=== PATIENT | female | born 1995 | race Caucasian/White ===

== ENCOUNTER 2016-10-26 14:46 | Emergency (ER) | payer BC ==
[~2016-10-26] VITALS: Ht 165.1 cm; Wt 159.0 kg
[2016-10-26 15:37] LABS: HEMATOCRIT 37.9 % (36.0-46.0); MCH 26.8 PG (29.0-34.0); MCHC 32.2 G/DL (30.0-36.0); MCV 83.3 FL (83-99); MEAN PLAT.VOLUME 10.2 uM^3 (9.5-12.4); PLATELET COUNT 323 K/uL (156-360); RBC DIS.WIDTH-CV 13.3 % (11.8-14.6); RBC DIS.WIDTH-SD 40.6 % (39-53); RED BLOOD COUNT 4.55 M/uL (3.80-5.20); WHITE BLOOD COUNT 9.9 K/uL (4.1-10.2)
[2016-10-26] MEDS ORDERED: ZANTAC150 MG PO (15:37)
[2016-10-26] MEDS ORDERED: LEXAPRO10 MG PO (15:37)
[2016-10-26] MEDS ORDERED: LO LOESTRIN FE1 EACH PO (15:37)
[2016-10-26 15:46] LABS: CHLORIDE 110 mEq/L (99-109); POTASSIUM 4.4 mEq/L (3.7-5.4); SODIUM 142 mEq/L (136-147)
[2016-10-26 15:47] LABS: GLUCOSE 97 mg/dL (70-99)
[2016-10-26 15:48] LABS: D-DIMER ELISA 0.75 mg/L FEU (< 0.57)
[2016-10-26 15:49] LABS: ANION GAP 10 MEQ/L (2-14)
[2016-10-26 15:51] LABS: GFR ESTIMATE (CALCULATED) > 59 mL/min/
[2016-10-26 15:52] LABS: UREA NITROGEN (BUN) 9 mg/dL (9-23)
[2016-10-26 16:00] LABS: TROP-I INTERPRETATION NEGATIVE; TROPONIN-I < 0.01 ng/mL (0.0-0.30)
[2016-10-26 16:01] LABS: QUANTITATIVE HCG < 4.0 MIU/ML
[2016-10-26 19:31] VITALS: BP 132/69
== END 2016-10-26 19:41 | disposition home or self-care (01) ==
LOC: EME 14:46
PROVIDERS: Physician Assistant
DX: G43.909 Migraine, unspecified, not intractable, without status migrainosus (principal); M94.0 Chondrocostal junction syndrome [Tietze]
CPT/HCPCS: 71275; 80048; 84484; 84702; 85027; 85379; 93005; 99281; 99285; J1885

== ENCOUNTER → 2016-11-30 | Outpatient (CLI) | payer BC ==
[~2016-11-30] MED LIST: LEXAPRO10 MG PO; LO LOESTRIN FE1 EACH PO; ZANTAC150 MG PO
== END | disposition home or self-care (01) ==
LOC: RAD 13:28
DX: I82.442 Acute embolism and thrombosis of left tibial vein (principal)
CPT/HCPCS: 93971